=== PATIENT | male | born 1955 | race Caucasian/White ===

== ENCOUNTER 2020-06-15 10:40 | Day surgery (SDC) | payer MEDICARE, MEDICAID ==
[~2020-06-15] VITALS: Ht 175.3 cm; Wt 108.7 kg
[2020-06-15] VITALS (8 sets, daily range): BP systolic 115–160; BP diastolic 52–96
[2020-06-15] MEDS ORDERED: LISI40TA4 PO (11:08)
[2020-06-15] MEDS ORDERED: HYDR12.55 PO (11:08)
[2020-06-15] MEDS ORDERED: AMLO5TAB16 PO (11:08)
[2020-06-15] MEDS ORDERED: ATOR-2 PO (11:08)
[2020-06-15] MEDS ORDERED: METF-438 PO (11:08)
[2020-06-15] MEDS ORDERED: ASPI-1265 PO (11:08)
[2020-06-15] MEDS ORDERED: ALPR0.5T9 (11:08)
[2020-06-15] MEDS ORDERED: NITR0.4T48 (11:08)
[2020-06-15] MEDS ORDERED: OMEP-50 PO (11:08)
[2020-06-15] MEDS ORDERED: LIDOcaine/PRILOcaine 5gm cream TP ONE (11:10)
[2020-06-15] MEDS ORDERED: normal saline 1,000 ML IV SCH (11:10)
[2020-06-15] MEDS ORDERED: diphenhydrAMINE 25mg capsule PO PRN (11:10)
[2020-06-15] MEDS ORDERED: LORazepam 0.5 MG tablet PO PRN (11:10)
[2020-06-15] MEDS ORDERED: verapamil 2.5 mg/ml inj IV ONE (11:50)
[2020-06-15] MEDS ORDERED: nitroGLYCERIN-Tridil 50MG/D5W 250 ML IV ONE (11:50)
[2020-06-15] MEDS ORDERED: midazolam 2 mg/2 ml injection ONE ×2 (11:50→12:21)
[2020-06-15] MEDS ORDERED: heparin 1,000unit/ml 10ml vial 10 ML ONE (11:51)
[2020-06-15] MEDS ORDERED: iohexol 350MG/ML 100ml bottle IV ONE (11:51)
[2020-06-15] MEDS ORDERED: LIDOcaine 1% (10mg/ml)w/preservative injection 20ml MDV ONE (11:51)
[2020-06-15] MEDS ORDERED: fentaNYL/PF 50MCG/1 ML 2ML syringe ONE (11:51)
[2020-06-15] MEDS ORDERED: OXAZEpam 15mg capsule PO PRN (13:15)
[2020-06-15] MEDS ORDERED: proCHLORperazine 10 MG/2 ml inj IV PRN (13:15)
[2020-06-15] MEDS ORDERED: HYDROcodone/acetaminophen 10/325mg tab PO PRN (13:15)
[2020-06-15] MEDS ORDERED: HYDROcodone/acetaminophen 5mg/325mg tablet PO PRN (13:15)
[2020-06-15] MEDS ORDERED: ondansetron/PF 4mg/2ml inj IV PRN (13:15)
== END 2020-06-15 15:30 | disposition home or self-care (01) ==
LOC: SSTAY O 10:40
PROVIDERS: ATTEND Internal Medicine Interventional Cardiology
DX: I25.110 Atherosclerotic heart disease of native coronary artery with unstable angina pectoris (principal); G47.33 Obstructive sleep apnea (adult) (pediatric); E11.40 Type 2 diabetes mellitus with diabetic neuropathy, unspecified; I25.2 Old myocardial infarction; E78.5 Hyperlipidemia, unspecified; I10 Essential (primary) hypertension; Z79.84 Long term (current) use of oral hypoglycemic drugs; Z79.82 Long term (current) use of aspirin; Z79.899 Other long term (current) drug therapy; Z87.891 Personal history of nicotine dependence
CPT/HCPCS: 82948; 93005; 93458; 99152; C1769; C1894; J1644; J2001; J2250; J3010; J7030; Q0163; Q9967; A5120; J3490